=== PATIENT | male | born 1940 | race Caucasian/White ===

== ENCOUNTER 2018-01-08 20:18 | Inpatient (IN) | payer MEDICARE ==
[~2018-01-08] VITALS: Ht 175.3 cm; Wt 59.9 kg
[~2018-01-08 20:18] MED LIST: ALPR2TAB2 PO; METH10TA2 PO; SOMA
[2018-01-08] MEDS ORDERED: ACETAMINOPHEN 650MG SUPP PR STA (20:42)
[2018-01-08] MEDS ORDERED: PIPERACILLIN/TAZ 3.375G PREMIX 50 ML IV ONE (20:45)
[2018-01-08] MEDS ORDERED: SODIUM CHLORIDE 0.9% 1000ML BAG (SEPSIS BOLUS) IV ONE (20:45)
[2018-01-08] MEDS ORDERED: VANCOMYCIN 1 G PREMIX 200 ML IV ONE (20:45)
[2018-01-08 21:14] LABS: CLARITY URINE CLEAR (CLEAR); COLOR URINE YELLOW (YELLOW); KETONES URINE NEGATIVE (NEGATIVE); LEUKOCYTE ESTERASE URINE NEGATIVE (NEGATIVE); NITRITE URINE NEGATIVE (NEGATIVE); OCCULT BLOOD URINE TRACE (NEGATIVE); PH URINE 5.5 (4.5-8.0); PROTEIN URINE NEGATIVE (NEGATIVE); SPECIFIC GRAVITY URINE 1.015 (1.005-1.030)
[2018-01-08 21:26] LABS: BG BASE EXCESS 1.4 mmol/L (-2.0-2.0); BG CARBOXYHEMOGLOBIN 3.6 % (0.5-1.5); BG DEOXYHEMOGLOBIN 0.9 % (0.0-5.0); BG FRACTION INSPIRED OXYGEN 21; BG HCO3 ACT 22.4 mmol/L (22.0-26.0); BG METHEMOGLOBIN 0.3 % (0.0-1.5); BG OXYGEN SATURATION 99.1 % (92.0-98.5); BG OXYHEMOGLOBIN 95.2 % (94.0-97.0); BG PCO2 26.3 mmHg (35.0-45.0); BG PH 7.549 (7.350-7.450); BG PO2 162.9 mmHg (75.0-100.0); BG SAMPLE SITE LEFT BRACHIAL; BG TOTAL HEMOGLOBIN 13.9 g/dL (12.0-18.0); BG VENT MODE ROOM AIR
[2018-01-08 21:29] LABS: BASOPHILS % 0.6 % (0.0-2.0); CHLORIDE 102 mEq/L (98-107); EOSINOPHILS % 0.7 % (0.0-5.0); HEMOGLOBIN. 12.8 g/dL (14.0-18.0); LYMPHOCYTES % 7.9 % (20.0-50.0); MEAN CORPUSCULAR HEMOGLOBIN 31.4 pg (28.0-32.0); MEAN CORPUSCULAR VOLUME 90.7 fL (80.0-94.0); MEAN PLATELET VOLUME 8.1 fl (7.4-10.4); MONOCYTES % 5.8 % (2.0-8.0); PLATELET 235 x1000/uL (130-400); RED BLOOD CELL COUNT 4.08 mill/uL (4.7-6.1); RED CELL DISTRIBUTION WIDTH 13.8 % (11.6-14.6)
[2018-01-08 21:30] LABS: INR 1.2; PROTHROMBIN TIME 12.4 sec (9.4-11.6)
[2018-01-08 21:33] LABS: ETHANOL BLOOD < 10 mg/dL
[2018-01-08 21:38] LABS: CREATINE KINASE 281 IU/L (39-308)
[2018-01-08 21:42] LABS: *AMPHETAMINES SCREEN URINE NEGATIVE (NEGATIVE); *BARBITURATES SCREEN URINE NEGATIVE (NEGATIVE); *BENZODIAZEPINES SCREEN URINE NEGATIVE (NEGATIVE); *COCAINE SCREEN URINE PRESUMTIVE POSITIVE (NEGATIVE)
[2018-01-08 21:43] LABS: CANNABINOID URINE SCREEN NEGATIVE (NEGATIVE); METHADONE URINE SCREEN PRESUMTIVE POSITIVE (NEGATIVE); OPIATES URINE SCREEN PRESUMTIVE POSITIVE (NEGATIVE); PHENCYCLIDINE URINE SCREEN NEGATIVE (NEGATIVE)
[2018-01-08] MEDS ORDERED: LORAZEPAM 2MG/ML CPJ IV ONE (21:45)
[2018-01-08] MEDS ORDERED: LORAZEPAM 2MG/ML CPJ IV SCH (21:58)
[2018-01-09] MEDS ORDERED: VANCOMYCIN 1 G PREMIX 200 ML IV SCH ×2 (00:30→05:00)
[2018-01-09] MEDS ORDERED: ONDANSETRON HCL 4MG/2ML VIAL IV PRN (00:30)
[2018-01-09] MEDS ORDERED: ACETAMINOPHEN 325MG TABLET PO PRN (00:30)
[2018-01-09] MEDS ORDERED: CLONIDINE 0.1MG TABLET PO PRN (00:30)
[2018-01-09] MEDS ORDERED: DIPHENHYDRAMINE 50MG/ML VIAL IV PRN (00:30)
[2018-01-09] MEDS ORDERED: MAGNESIUM/ALUMINUM HYDROXIDE/SIMETHICONE 30ML UDC PO PRN (00:30)
[2018-01-09] MEDS ORDERED: LORAZEPAM 2MG/ML CPJ IV PRN (00:30)
[2018-01-09] MEDS ORDERED: IPRATROPIUM/ALBUTEROL 0.5-3(2.5)MG/3ML NEB INH PRN (00:30)
[2018-01-09] MEDS ORDERED: MVI, ADULT NO.1 10 ML, FOLIC ACID 1 MG, THIAMINE HCL 100 MG in SODIUM CHLORIDE 0.9% 1,0... IV SCH ×4 (02:00)
[2018-01-09 03:30] VITALS: BP 121/49
[2018-01-09 04:00] VITALS: BP 121/49
[2018-01-09] MEDS: DEXT 5%/0.45% NACL 1000ML 1,000 ML IV SCH ×2 (05:08→13:55)
[2018-01-09] MEDS ORDERED: PIPERACILLIN/TAZ 3.375G PREMIX 50 ML IV SCH ×2 (06:00→10:00)
[2018-01-09] MEDS ORDERED: LEVOFLOXACIN 500MG PREMIX 100 ML IV SCH (06:00)
[2018-01-09 07:45] LABS: HEMATOCRIT. 37.3 % (42.0-52.0); HEMOGLOBIN. 12.3 g/dL (14.0-18.0); MEAN CORPUSCULAR HEMOGLOBIN 30.7 pg (28.0-32.0); MEAN CORPUSCULAR VOLUME 92.6 fL (80.0-94.0); MEAN PLATELET VOLUME 8.6 fl (7.4-10.4); PLATELET 194 x1000/uL (130-400); RED BLOOD CELL COUNT 4.02 mill/uL (4.7-6.1); RED CELL DISTRIBUTION WIDTH 14.3 % (11.6-14.6)
[2018-01-09 07:46] LABS: CHLORIDE 104 mEq/L (98-107)
[2018-01-09 08:44] VITALS: BP 101/56
[2018-01-09] MEDS ORDERED: METHADONE HCL 10MG TABLET PO SCH (09:00)
[2018-01-09] MEDS: FAMOTIDINE 20MG/2ML VIAL IV SCH ×2 (11:00→21:21)
[2018-01-09] MEDS: PIPERACILLIN/TAZ 3.375G PREMIX 50 ML IV SCH ×2 (11:01→18:00)
[2018-01-09] MEDS: METHADONE HCL 5MG TABLET PO SCH (11:01)
[2018-01-09] MEDS: METHADONE HCL 10MG TABLET PO SCH (11:02)
[2018-01-09] MEDS: GUAIFENESIN 600MG ER TABLET PO SCH ×2 (11:03→21:21)
[2018-01-09 11:41] LABS: PLATELET ESTIMATE NORMAL
[2018-01-09 12:00] VITALS: BP 106/59
[2018-01-09 16:05] VITALS: BP 100/45
[2018-01-09 20:00] VITALS: BP 102/57
[2018-01-09] MEDS: VANCOMYCIN 1 G PREMIX 200 ML IV SCH (21:21)
[2018-01-10] VITALS: BP 103/57
[2018-01-10] MEDS: PIPERACILLIN/TAZ 3.375G PREMIX 50 ML IV SCH ×2 (02:02→11:23)
[2018-01-10 04:00] VITALS: BP 104/51
[2018-01-10] MEDS: DEXT 5%/0.45% NACL 1000ML 1,000 ML IV SCH (05:40)
[2018-01-10] MEDS ORDERED: LEVOFLOXACIN 500MG PREMIX 100 ML IV SCH ×2 (06:00)
[2018-01-10 07:51] LABS: BASOPHILS % 0.8 % (0.0-2.0); EOSINOPHILS % 4.3 % (0.0-5.0); HEMOGLOBIN. 11.8 g/dL (14.0-18.0); LYMPHOCYTES % 14.1 % (20.0-50.0); MEAN CORPUSCULAR HEMOGLOBIN 31.1 pg (28.0-32.0); MEAN CORPUSCULAR VOLUME 91.9 fL (80.0-94.0); MEAN PLATELET VOLUME 8.4 fl (7.4-10.4); MONOCYTES % 10.4 % (2.0-8.0); NEUTROPHILS % 70.4 % (40.0-76.0); PLATELET 175 x1000/uL (130-400); RED BLOOD CELL COUNT 3.81 mill/uL (4.7-6.1); RED CELL DISTRIBUTION WIDTH 14.4 % (11.6-14.6)
[2018-01-10 08:00] VITALS: BP 105/53
[2018-01-10 08:21] LABS: CHLORIDE 105 mEq/L (98-107)
[2018-01-10] MEDS: GUAIFENESIN 600MG ER TABLET PO SCH ×2 (08:21→20:05)
[2018-01-10] MEDS: METHADONE HCL 5MG TABLET PO SCH (08:23)
[2018-01-10] MEDS: VANCOMYCIN 1 G PREMIX 200 ML IV SCH ×2 (08:26→17:11)
[2018-01-10] MEDS: METHADONE HCL 10MG TABLET PO SCH (08:26)
[2018-01-10] MEDS: FAMOTIDINE 20MG/2ML VIAL IV SCH ×2 (08:26→20:05)
[2018-01-10 12:00] VITALS: BP 126/58
[2018-01-10] MEDS ORDERED: SODIUM BICARBONATE 4% (2.4MEQ) 5ML VIAL IV ONE (13:19)
[2018-01-10] MEDS ORDERED: LIDOCAINE HCL/PF 1% 10 MG/ML 5ML VIAL ONE (13:19)
[2018-01-10 16:00] VITALS: BP 132/73
[2018-01-10 20:05] VITALS: BP 134/67
[2018-01-11 00:28] VITALS: BP 130/75
[2018-01-11 04:00] VITALS: BP 131/73
[2018-01-11] MEDS: DEXT 5%/0.45% NACL 1000ML 1,000 ML IV SCH ×2 (04:49→09:00)
[2018-01-11] MEDS: VANCOMYCIN 1 G PREMIX 200 ML IV SCH ×2 (06:13→18:46)
[2018-01-11 07:27] LABS: HEMATOCRIT 36.1 % (42.0-52.0); HEMOGLOBIN 12.2 g/dL (14.0-18.0); PLATELET 189 x1000/uL (130-400); RED BLOOD CELL COUNT 3.93 mill/uL (4.7-6.1); RED CELL DISTRIBUTION WIDTH 14.5 % (11.6-14.6)
[2018-01-11 07:55] LABS: CHLORIDE 105 mEq/L (98-107)
[2018-01-11 08:00] VITALS: BP 123/77
[2018-01-11] MEDS: GUAIFENESIN 600MG ER TABLET PO SCH (08:57)
[2018-01-11] MEDS: FAMOTIDINE 20MG/2ML VIAL IV SCH (08:57)
[2018-01-11] MEDS: METHADONE HCL 5MG TABLET PO SCH (08:59)
[2018-01-11] MEDS: METHADONE HCL 10MG TABLET PO SCH (09:02)
[2018-01-11 12:00] VITALS: BP 118/74
[2018-01-11 16:00] VITALS: BP 106/70
[2018-01-11 20:00] VITALS: BP 137/72
== END 2018-01-11 21:21 | disposition left against medical advice (07) | DRG 871 ==
LOC: ER 21:04 → 8WST 01-09 → EDBEDREQTM 01-09 00:13 → EDBEDREQDT 01-09 00:13 → EDBEDREQSVC 01-09 00:13 → EDBEDREQ 01-09 00:13 → ENRESERV 01-09 02:06
PROVIDERS: ADMIT Internal Medicine; ATTEND Internal Medicine
PROC: 02HV33Z Insertion of Infusion Device into Superior Vena Cava, Percutaneous Approach (ICD-10-PCS; principal; 2018-01-10)
PROC: B5181ZA Fluoroscopy of Superior Vena Cava using Low Osmolar Contrast, Guidance (ICD-10-PCS; 2018-01-10)
DX: A41.9 Sepsis, unspecified organism (principal); G93.41 Metabolic encephalopathy; E44.1 Mild protein-calorie malnutrition; I38 Endocarditis, valve unspecified; Z68.1 Body mass index [BMI] 19.9 or less, adult; M19.90 Unspecified osteoarthritis, unspecified site; G89.29 Other chronic pain; F14.10 Cocaine abuse, uncomplicated; F11.90 Opioid use, unspecified, uncomplicated; B19.20 Unspecified viral hepatitis C without hepatic coma; M54.5 Low back pain; B96.89 Other specified bacterial agents as the cause of diseases classified elsewhere; Z53.21 Procedure and treatment not carried out due to patient leaving prior to being seen by health care provider; Z72.0 Tobacco use; Z83.3 Family history of diabetes mellitus; Z79.899 Other long term (current) drug therapy; Z82.49 Family history of ischemic heart disease and other diseases of the circulatory system
CPT/HCPCS: 36415; 36569; 36600; 70450; 71045; 76937; 77001; 80048; 80053; 80202; 80305; 81003; 82375; 82550; 82805; 83605; 83880; 84484; 85025; 85027; 85610; 85651; 86140; 87040; 87086; 87804; 93005; 93306; 99285; C1725; G0482; J1956; J2060; J2543; J3370; J3411; J3490; J7030

== ENCOUNTER 2019-08-14 17:44 | Inpatient (IN) | payer OTHER, MEDICARE ==
[~2019-08-14] VITALS: Ht 177.8 cm; Wt 59.0 kg
[~2019-08-14 17:44] MED LIST changes: -SOMA
[2019-08-14] MEDS ORDERED: ACETAMINOPHEN 500MG TABLET PO ONE (19:30)
[2019-08-14 19:36] LABS: CHLORIDE 102 mEq/L (98-107)
[2019-08-14 19:37] LABS: BASOPHILS % 0.8 % (0.0-2.0); EOSINOPHILS % 9.2 % (0.0-5.0); HEMOGLOBIN. 13.7 g/dL (14.0-18.0); INR 1.1; LYMPHOCYTES % 15.8 % (20.0-50.0); MEAN CORPUSCULAR HEMOGLOBIN 30.9 pg (28.0-32.0); MEAN CORPUSCULAR VOLUME 92.4 fL (80.0-94.0); MEAN PLATELET VOLUME 7.7 fl (7.4-10.4); MONOCYTES % 10.3 % (2.0-8.0); NEUTROPHILS % 63.9 % (40.0-76.0); PLATELET 240 x1000/uL (130-400); PROTHROMBIN TIME 11.6 sec (9.6-11.0); RED BLOOD CELL COUNT 4.44 mill/uL (4.7-6.1); RED CELL DISTRIBUTION WIDTH 15.3 % (11.6-14.6)
[2019-08-14] MEDS ORDERED: AZITHROMYCIN 500 MG in DEXT 5% WATER 250 ML IV SCH (22:00)
[2019-08-15] VITALS (7 sets, daily range): BP systolic 101–121; BP diastolic 54–63
[2019-08-15 00:38] LABS: CLARITY URINE CLEAR (CLEAR); COLOR URINE YELLOW (YELLOW); KETONES URINE NEGATIVE (NEGATIVE); LEUKOCYTE ESTERASE URINE NEGATIVE (NEGATIVE); NITRITE URINE NEGATIVE (NEGATIVE); OCCULT BLOOD URINE NEGATIVE (NEGATIVE); PROTEIN URINE NEGATIVE (NEGATIVE); SPECIFIC GRAVITY URINE 1.016 (1.005-1.030)
[2019-08-15] MEDS ORDERED: METH10TA2 PO (01:20)
[2019-08-15] MEDS ORDERED: IPRATROPIUM/ALBUTEROL 0.5-3(2.5)MG/3ML NEB HHN PRN (02:30)
[2019-08-15] MEDS ORDERED: ACETAMINOPHEN 325MG TABLET PO PRN (02:30)
[2019-08-15] MEDS: PIPERACILLIN/TAZOBACTAM 3.375 G in DEXT 5% WATER 100 ML IV SCH ×3 (05:17→19:52)
[2019-08-15] MEDS: KETOROLAC 15MG/ML VIAL IV PRN ×2 (05:30→12:12)
[2019-08-15] MEDS: SODIUM CHLORIDE 0.9% INJ 3ML FLUSH IVF SCH ×3 (05:30→22:27)
[2019-08-15 07:16] LABS: BASOPHILS % 1.2 % (0.0-2.0); HEMATOCRIT. 35.5 % (42.0-52.0); HEMOGLOBIN. 11.9 g/dL (14.0-18.0); MEAN CORPUSCULAR HEMOGLOBIN 30.7 pg (28.0-32.0); MEAN CORPUSCULAR VOLUME 91.9 fL (80.0-94.0); MEAN PLATELET VOLUME 8.1 fl (7.4-10.4); NEUTROPHILS % 50.8 % (40.0-76.0); PLATELET 221 x1000/uL (130-400); RED BLOOD CELL COUNT 3.86 mill/uL (4.7-6.1); RED CELL DISTRIBUTION WIDTH 15.1 % (11.6-14.6)
[2019-08-15 07:30] LABS: CHLORIDE 105 mEq/L (98-107)
[2019-08-15] MEDS: ENOXAPARIN 40MG/0.4ML SYR SUBCUT SCH (11:44)
[2019-08-15] MEDS: LEVOTHYROXINE SODIUM 50MCG TABLET PO SCH (13:38)
[2019-08-15] MEDS: METHADONE HCL 10MG TABLET PO SCH (13:39)
[2019-08-15 14:03] LABS: *AMPHETAMINES SCREEN URINE NEGATIVE (NEGATIVE); *BARBITURATES SCREEN URINE NEGATIVE (NEGATIVE); *BENZODIAZEPINES SCREEN URINE NEGATIVE (NEGATIVE); *COCAINE SCREEN URINE PRESUMTIVE POSITIVE (NEGATIVE); METHADONE URINE SCREEN PRESUMTIVE POSITIVE (NEGATIVE)
[2019-08-15 14:04] LABS: OPIATES URINE SCREEN PRESUMTIVE POSITIVE (NEGATIVE); PHENCYCLIDINE URINE SCREEN NEGATIVE (NEGATIVE)
[2019-08-15 14:05] LABS: CANNABINOID URINE SCREEN NEGATIVE (NEGATIVE)
[2019-08-15] MEDS ORDERED: POTASSIUM CHLORIDE 20MEQ TABLET SR PO NR (18:00)
[2019-08-15] MEDS ORDERED: LORAZEPAM 2MG/ML CPJ IV PRN (18:00)
[2019-08-15] MEDS ORDERED: HYDRALAZINE 20MG/ML VIAL IV PRN (18:00)
[2019-08-15] MEDS ORDERED: CLONIDINE 0.1MG TABLET PO PRN (18:00)
[2019-08-15] MEDS ORDERED: LACTULOSE 20G/30ML UDC PO PRN (18:00)
[2019-08-15] MEDS: ASPIRIN 81MG TABLET PO SCH ×2 (19:52→20:00)
[2019-08-15 21:26] LABS: BG BASE EXCESS 4.4 mmol/L (-2.0-2.0); BG CARBOXYHEMOGLOBIN 1.5 % (0.5-1.5); BG DEOXYHEMOGLOBIN 5.7 % (0.0-5.0); BG FRACTION INSPIRED OXYGEN 21; BG METHEMOGLOBIN 0.2 % (0.0-1.5); BG OXYGEN SATURATION 94.2 % (92.0-98.5); BG OXYHEMOGLOBIN 92.6 % (94.0-97.0); BG PH 7.405 (7.350-7.450); BG PO2 74.1 mmHg (75.0-100.0); BG SAMPLE SITE RIGHT BRACHIAL; BG TOTAL HEMOGLOBIN 12.8 g/dL (12.0-18.0); BG VENT MODE ROOM AIR
[2019-08-16] MEDS ORDERED: AZITHROMYCIN 500 MG in DEXT 5% WATER 250 ML IV SCH ×2
[2019-08-16] MEDS: PIPERACILLIN/TAZOBACTAM 3.375 G in DEXT 5% WATER 100 ML IV SCH ×2 (00:35→06:10)
[2019-08-16 00:45] VITALS: BP 115/64
[2019-08-16 04:00] VITALS: BP 116/66
[2019-08-16] MEDS: SODIUM CHLORIDE 0.9% INJ 3ML FLUSH IVF SCH ×3 (06:10→23:03)
[2019-08-16] MEDS: LEVOTHYROXINE SODIUM 50MCG TABLET PO SCH (06:25)
[2019-08-16 07:03] LABS: HEMATOCRIT 35.8 % (42.0-52.0); HEMOGLOBIN 12.1 g/dL (14.0-18.0); MEAN CORPUSCULAR VOLUME 91.7 fL (80.0-94.0); PLATELET 217 x1000/uL (130-400); RED BLOOD CELL COUNT 3.91 mill/uL (4.7-6.1); RED CELL DISTRIBUTION WIDTH 15.3 % (11.6-14.6)
[2019-08-16 08:14] VITALS: BP 116/71
[2019-08-16] MEDS: ASPIRIN 81MG TABLET PO SCH (08:43)
[2019-08-16] MEDS: ENOXAPARIN 40MG/0.4ML SYR SUBCUT SCH (08:43)
[2019-08-16] MEDS: METHADONE HCL 10MG TABLET PO SCH (08:43)
[2019-08-16 08:54] LABS: T4 FREE 0.98 ng/dL (0.76-1.46)
[2019-08-16 11:52] VITALS: BP 115/63
[2019-08-16] MEDS: CEPHALEXIN 250MG CAPSULE PO SCH ×3 (12:08→23:03)
[2019-08-16 16:12] VITALS: BP 113/61
[2019-08-16 20:00] VITALS: BP 110/64
[2019-08-17 00:29] VITALS: BP 116/52
[2019-08-17 04:00] VITALS: BP 124/69
[2019-08-17] MEDS: SODIUM CHLORIDE 0.9% INJ 3ML FLUSH IVF SCH ×2 (06:21→14:20)
[2019-08-17] MEDS: LEVOTHYROXINE SODIUM 50MCG TABLET PO SCH (06:22)
[2019-08-17] MEDS: CEPHALEXIN 250MG CAPSULE PO SCH ×2 (06:22→14:22)
[2019-08-17 07:57] LABS: HEMATOCRIT 36.9 % (42.0-52.0); HEMOGLOBIN 12.2 g/dL (14.0-18.0); MEAN CORPUSCULAR HEMOGLOBIN 30.5 pg (28.0-32.0); MEAN CORPUSCULAR VOLUME 91.9 fL (80.0-94.0); PLATELET 213 x1000/uL (130-400); RED BLOOD CELL COUNT 4.02 mill/uL (4.7-6.1); RED CELL DISTRIBUTION WIDTH 15.3 % (11.6-14.6)
[2019-08-17 08:00] VITALS: BP 127/58
[2019-08-17] MEDS: ASPIRIN 81MG TABLET PO SCH (09:00)
[2019-08-17] MEDS: METHADONE HCL 10MG TABLET PO SCH (10:14)
[2019-08-17] MEDS: ENOXAPARIN 40MG/0.4ML SYR SUBCUT SCH (10:15)
[2019-08-17 12:00] VITALS: BP_SYST 114; BP_SYST 123; BP_DIAS 66; BP_DIAS 71
[2019-08-17 16:00] VITALS: BP 122/67
[2019-08-17 19:50] VITALS: BP 122/122
[2019-08-17] MEDS ORDERED: CEPHALEXIN 250MG CAPSULE PO SCH (20:00)
== END 2019-08-17 20:00 | DRG 918 ==
LOC: ER 17:44 → EDBEDREQ 22:08 → 6WST 22:16 → EDBEDREQTM 22:19 → EDBEDREQ 22:19 → ENRESERV 23:03
PROVIDERS: ADMIT Internal Medicine; ATTEND Internal Medicine
DX: T40.5X1A Poisoning by cocaine, accidental (unintentional), initial encounter (principal); J68.0 Bronchitis and pneumonitis due to chemicals, gases, fumes and vapors; E87.2 Acidosis; L03.116 Cellulitis of left lower limb; L03.115 Cellulitis of right lower limb; E44.0 Moderate protein-calorie malnutrition; Z68.1 Body mass index [BMI] 19.9 or less, adult; R65.10 Systemic inflammatory response syndrome (SIRS) of non-infectious origin without acute organ dysfunction; I11.0 Hypertensive heart disease with heart failure; D64.9 Anemia, unspecified; E87.6 Hypokalemia; B19.20 Unspecified viral hepatitis C without hepatic coma; E03.9 Hypothyroidism, unspecified; I73.9 Peripheral vascular disease, unspecified; F11.90 Opioid use, unspecified, uncomplicated; F14.10 Cocaine abuse, uncomplicated; I27.20 Pulmonary hypertension, unspecified; R00.1 Bradycardia, unspecified; E78.5 Hyperlipidemia, unspecified; F17.210 Nicotine dependence, cigarettes, uncomplicated; I07.1 Rheumatic tricuspid insufficiency; I50.9 Heart failure, unspecified; M19.90 Unspecified osteoarthritis, unspecified site; Z91.19 Patient's noncompliance with other medical treatment and regimen; Z86.73 Personal history of transient ischemic attack (TIA), and cerebral infarction without residual deficits; Z86.19 Personal history of other infectious and parasitic diseases; Z79.899 Other long term (current) drug therapy; Y92.89 Other specified places as the place of occurrence of the external cause
CPT/HCPCS: 36415; 36600; 71045; 80048; 80053; 80305; 81003; 82375; 82805; 83605; 83880; 84439; 84443; 84481; 84484; 85025; 85027; 93005; 93306; 93970; 97162; 99285; J0456; J1650; J1885; J2543; J7060